=== PATIENT | female | born 1960 | race Caucasian/White ===

== ENCOUNTER → 2017-12-25 | Outpatient (CLI) | payer OTHER ==
[~2017-12-25] MED LIST: GARL400T4 PO; METO25TA3 PO; MULT-506 PO; OMEG10007 PO; PROGESTERONE PO
--- NOTE | 2017-12-25 17:04 | DIAGNOSTIC IMAGING REPORT ---
R ELBOW MIN 3 VIEWS ROUTINE CLINICAL HISTORY: RIGHT ELBOW PAIN COMPARISON: None. DISCUSSION: No fractures or dislocations are visualized. There are mild degenerative changes. On the oblique view, a tiny spur/loose body is visualized . IMPRESSION: 1. Mild degenerative change 2. No fractures identified Electronically signed by: Bj Rene M.D. 12/25/2017 5:03 PM Dictated Date/Time: 12/25/2017 5:02 PM
== END | disposition home or self-care (01) ==
LOC: C.RAD1850 16:53
PROVIDERS: ATTEND Nurse Practitioner Family
DX: M70.21 Olecranon bursitis, right elbow (principal); M25.521 Pain in right elbow